=== PATIENT | female | born 1995 | race Caucasian/White ===

== ENCOUNTER → 2021-05-18 09:15 | Outpatient (CLI) | payer OTHER, SELFPAY ==
[2021-05-18 13:52] LABS: SARS-CoV-2 RNA PCR Positive
[2021-05-18 15:19] LABS: Influenza A QL RT-PCR Negative (Negative); Influenza B QL RT-PCR Negative (Negative)
== END ==
PROVIDERS: PCP Family Medicine; Visit Provider Physician Assistant
DX: U07.1 COVID-19 (principal); R50.9 Fever, unspecified
CPT/HCPCS: 87502; C9803; U0003; U0005

== ENCOUNTER 2021-07-01 17:10 | Emergency (ER) | payer OTHER, SELFPAY ==
[2021-07-01 17:17] VITALS: BP 154/90; PULSE 84; RESP 18; TEMP 36.6; O2SAT 100
--- NOTE | 2021-07-01 17:52 | ED.GENADULT ---
HPI - General Adult General Chief complaint: Dental/Oral Stated complaint: Work injury Time Seen by Provider: 07/01/21 17:41 Source: patient and RN notes reviewed Mode of arrival: ambulatory Limitations: no limitations History of Present Illness HPI narrative: Patient presents today after she was injured at work. 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 Injury occurred at 1530. At time of injury, her head was thrown backwards, causing a headache and neck pain, one of her teeth was chipped, and she has sustained a cut to her lower lip. She currently rates her pain 3/10 and has taken some ibuprofen with some relief. MD complaint: Headache, neck pain, lip injury Related Data Home Medications Medication Instructions Recorded Confirmed multivitamin 1 tablet PO DAILY 04/14/20 06/16/20 Allergies Allergy/AdvReac Type Severity Reaction Status Date / Time amoxicillin Allergy Unknown unknown Verified 08/04/20 14:07 Contrast Media Allergy Unknown Unknown Uncoded 08/04/20 14:07 Review of Systems Review of Systems: CONSTITUTIONAL: Denies body aches, fever, chills, or sweats. EYES: Denies visual changes, redness, or discharge. ENT: Denies rhinorrhea, congestion, sore throat, or otalgia.+ Lip injury, chipped tooth CARDIOVASCULAR: Denies chest pain, palpitations, or edema. RESPIRATORY: Denies cough or dyspnea. GASTROINTESTINAL: Denies abdominal pain, nausea, vomiting, or diarrhea. GENITOURINARY: Denies dysuria or hematuria. SKIN: Denies rash, itching, or wounds. MUSCULOSKELETAL: Denies back pain, joint pain. + Neck pain NEUROLOGIC: Denies numbness, tingling, or weakness.+ Headache PSYCH: Denies depression or anxiety. PMFSH Past Medical History Medical History Anxiety Chronic recurrent multifocal osteomyelitis Depression Family History Family History Mother Depression Sibling FH: mental illness Social History Social History Smoking status: Never smoker Tobacco type: cigarettes Alcohol intake: current Drinks per week: 2 Alcohol use details: drinks wine weekly Gender identity (if verbalized by the patient): Female Comments At time of signature, I have reviewed and agree with nursing past medical, surgical, social and family history unless otherwise noted. Please see nursing chart for further information. There is no relevant family history pertinent to the presenting complaint Exam Narrative: GENERAL: Well-appearing, well-nourished, and in no acute distress. HEAD: Normocephalic. EYES: EOMI. PERRL. No redness or drainage. Conjunctivae normal. ENT: Mucous membranes pink and moist. Nares clear. No rhinorrhea. Midline lower lip on the inner portion is slightly ecchymotic with 2 very superficial cuts measuring approximately 3 to 4 mm each. They do not need repair. Tooth #23 has a significant chip in it that is missing. NECK: Normal AROM with mild increased pain. Supple. No lymphadenopathy. Bilateral cervical paraspinal muscle tenderness, right greater than left. No spinal tenderness. CHEST: No respiratory distress. Clear to auscultation. HEART: Regular rate and rhythm. MUSCULOSKELETAL: No bony tenderness. EXTREMITIES: Normal range of motion. No edema. SKIN: Warm, dry, no rash. Capillary refill normal. Normal skin turgor. NEURO: No focal deficits. Alert and oriented x3. Gait steady. PSYCH: Normal affect. No signs of depression or anxiety. Course Course Level of Care: Express Care Visit Vital Signs Vital signs: Vital Signs Temperature 97.9 F 07/01/21 17:17 Pulse Rate 84 07/01/21 17:17 Respiratory Rate 18 07/01/21 17:17 Blood Pressure 154/90 H 07/01/21 17:17 Pulse Oximetry 100 07/01/21 17:17
== END 2021-07-01 18:10 | disposition home or self-care (01) ==
PROVIDERS: Emergency Provider Nurse Practitioner; PCP Physician Assistant
DX: S02.5XXA Fracture of tooth (traumatic), initial encounter for closed fracture (principal); S16.1XXA Strain of muscle, fascia and tendon at neck level, initial encounter; W50.0XXA Accidental hit or strike by another person, initial encounter; Y99.0 Civilian activity done for income or pay
CPT/HCPCS: 99213; G0463

== ENCOUNTER 2021-11-08 13:01 | Outpatient (CLI) | payer OTHER, SELFPAY ==
--- NOTE | ~2021-11-08 | XR_ITS ---
EXAM: XR wrist RT min 3V DATE: 11/08/2021 13:21 HISTORY: HIT WRIST ON BOAT PAIN ULNAR SIDE OF WRIST . COMPARISON: None available. FINDINGS: Normal mineralization. No fracture or dislocation. No lytic or blastic lesion. Joint space s are maintained. No erosion or periosteal change. Soft tissues within normal limits. IMPRESSION: No acute osseous finding in the right hand or wrist. Reviewed, dictated and finalized at location K.
--- NOTE | ~2021-11-08 | XR_ITS ---
XR hand RT min 3V DATE: 11/08/2021 13:21 INDICATION: Injury, medial pain TECHNIQUE: 3 views of right hand COMPARISON: None FINDINGS: No fracture or dislocation, periosteal reaction or bone destruction. Joint spaces are prese rved. No erosive change or chondrocalcinosis. IMPRESSION: Negative Reviewed, dictated and finalized at location A. IMPRESSION: Negative
== END 2021-11-08 13:02 | disposition home or self-care (01) ==
LOC: ANHIMG 13:02
PROVIDERS: PCP Family Medicine; Visit Provider Physician Assistant Medical
DX: M79.641 Pain in right hand (principal); M25.531 Pain in right wrist
CPT/HCPCS: 73110; 73130